=== PATIENT | male | born 1960 | race Caucasian/White ===

== ENCOUNTER 2021-02-01 11:00 | Outpatient (RCR) | payer BC, SELFPAY ==
--- NOTE | 2020-12-12 08:33 | HP.PTEVAL ---
Patient's Visit Information CJ CARRASCO is a 60 year old M referred to Physical Therapy by ELLA SALEH with a diagnosis of R RTC repair. Date of Evaluation: 12/07/20 Physical Therapist: Gustabo Lucia DPT - Visit Plan Frequency: 2-3x /Week Duration: 4 Weeks Plan: Start with PROM with focus on end range of motion. Add in inferior GH glides along with movements. Progress AAROM activities then AROm as tolerated. - Subjective Pt. is here today for his initial evaluation with R RTC repair 09/27/20. Pt. was in a sling for 6 weeks, but is no longer in it. 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 Pt. reports having increased pain at times, randomly. He has been pretty compliant with his HEP and with not lifting. Pt. reports sleeping okay in reclining chair, not as well in bed. He reports being very careful with his arm, but admits to occasionally over doing it. He had been doing pendulums and AAROM of her R shoulder. He reports having intermittent aching in his shoulder, but not too bad. He is hopeful to get back to all recreational and work activities without limitations. - Pain R shoulder Pain Intensity (Out of 10): 2 Pain Intensity Range: 0, 6 - Objective POSTURE: PT. has slight anterior R shoulder, slight guarded posture of R shoulder. PALAPTION: Pt. has tenderness along R UT and R sub acormial space. Mild. NEURO: Pt. has normal DTR and normal sensation of BUEs. ROM: LUE: full ROM without issues. R shoulder: PROM: flexion 165deg mild increase NW, ABd 155deg increase NW, ER 90deg 50deg, IR at 90deg 30deg. AAROM: Flexion 150deg, abd 120deg. MMT: did not test this date. - Balance/Special Test Scores Quick DASH Score: 61.3625 - Goals Goal 1:: LTG: Pt. to be I with HEP. Goal Time Frame: 4-6 Weeks Goal 2:: STG: Pt. to sleep throughout the night without increase in symptoms. Goal Time Frame: 2-4 Weeks Goal 3:: STG: Pt. to have full PROM without increase in symptoms of R shoulder. Goal Time Frame: 2 Weeks Goal 4:: LTG: Pt. to have full AROM of R shoulder without increase in symptoms. Goal Time Frame: 2-4 Weeks Goal 5:: STG: Pt. to complete light daily activities with in precautions without increase in symptoms. Goal Time Frame: 2-4 Weeks - Rehabilitation Potential Physical Therapy Diagnosis: Pt. has signs and symptoms consistent with R RTC repair. Pt. is ~8 weeks out of surgery and is overall doing well. He is still in his protective phase allowing for PROM and AAROM progressing to AROM. No resistance as of now. Pt. requires skilled PT to work on ROM progressing towards end range. Eventually progressing strengthening once approved to do so. Rehabilitation Potential: Excellent - Anticipated Interventions Patient/Client Instruction: Educate patient on: Condition, Plan of Care, Risk Factors, Benefits of Fitness Program For the Purpose of:: To improve decision making, To facilitate caregiver knowledge, To improve self management, To prevent re-injury, To improve ability to perform tasks related to life management Therapeutic Exercise to Include: Strength training, Power training, Endurance training, Postural training, Flexibilty training For the Purpose of:: To decrease pain, To increase ROM, To improve nutrient delivery to tissue, To increase oxygenation perfusion, To improve muscle performance and motor function, To improve ability to perform ADL's, To decrease soft tissue restriction, To increase flexibility/ROM Manual Therapy Techniques to Include: Mobilization, Passive ROM, Soft tissue mobilization For the Purpose of:: To decrease pain, To decrease swelling/inflammation, To increase ROM, To improve nutrient delivery to tissue, To increase oxygenation perfusion, To improve muscle performance and motor function Thank you for the opportunity to evaluate your patient. For Medicare and Medicare HMO plans, please review the plan of care and approve it. It will need to be FAXED BACK to us at [phone] for Medicare purposes. For Medicare only, by signing this I certify the plan of care. Please let me know if there are questions or concerns regarding this plan of care. Physician Signature: Date:
--- NOTE | 2021-01-04 12:52 | HP.PTREVAL ---
ELLA RICH, It has been my pleasure to treat CJ CARRASCO over the last 9 visits for R RTC repair 09/27/20. Please see the progress note below for an update on the physical therapy plan of care! Subjective: Pt. reports no pain currently. He does have some soreness the next day, but over all doing well. Objective/Function: Pt. is overall doing well, but is still tight with functional IR of his R shoulder. Pt. has good strength throughout his R shoulder 4/5 throughout, mild increase in symptoms with shoulder abd. He is compliant with his HEP without issues. Pt. to add in functional IR stretching with strap to HEP today. Pt. consents. He is pleased with his progress. I would like him to continue in PT with working on functional IR motion and strengthening of both RTC and deltoid. Plan Plan: Focus on improving functional IR AROM and strengthening of deltoid and RTC. 10# limit for the next few months. Balance/Gait/Functional tests - Balance/Special Test Scores Quick DASH Score: 27.2725 Goals Goal 1:: LTG: Pt. to be I with HEP. Goal Time Frame: 4-6 Weeks Goal Progress: Progressing Goal 2:: STG: Pt. to sleep throughout the night without increase in symptoms. Goal Time Frame: 2-4 Weeks Goal Progress: Goal Met Goal 3:: STG: Pt. to have full PROM without increase in symptoms of R shoulder. Goal Time Frame: 2 Weeks Goal Progress: Progressing Goal 4:: LTG: Pt. to have full AROM of R shoulder without increase in symptoms. Goal Time Frame: 2-4 Weeks Goal Progress: Progressing Goal 5:: STG: Pt. to complete light daily activities with in precautions without increase in symptoms. Goal Time Frame: 2-4 Weeks Goal Progress: Goal Met Goal 6:: LTG: PT. to have increased R shoulder strength increased to 5/5 throughout. Goal Time Frame: 4-6 Weeks Anticipated Interventions Patient/Client Instruction: Educate patient on: Condition, Plan of Care, Risk Factors, Benefits of Fitness Program For the Purpose of:: To improve decision making, To facilitate caregiver knowledge, To improve self management, To prevent re-injury, To improve ability to perform tasks related to life management Therapeutic Exercise to Include: Strength training, Power training, Endurance training, Postural training, Flexibilty training For the Purpose of:: To decrease pain, To increase ROM, To improve nutrient delivery to tissue, To increase oxygenation perfusion, To improve muscle performance and motor function, To improve ability to perform ADL's, To decrease soft tissue restriction, To increase flexibility/ROM Manual Therapy Techniques to Include: Mobilization, Passive ROM, Soft tissue mobilization For the Purpose of:: To decrease pain, To decrease swelling/inflammation, To increase ROM, To improve nutrient delivery to tissue, To increase oxygenation perfusion, To improve muscle performance and motor function Please do not hesitate to contact me at [phone] by phone or if you have questions or concerns regarding this new plan of care! Sincerely, CHANTELLE PandaT
--- NOTE | 2021-02-01 13:11 | HP.PTDCSUM ---
It has been my pleasure to treat CJ CARRASCO referred by ELLA RICH, with the diagnosis of R RTC repair 09/27/20 for a total of 17 visit(s). Discharge Date: 02/01/21 Please see the following information for a summary of their discharge status. Subjective: Pt. repots being 95% better overall. Pt. reports being back to work without issues. He has minimal soreness and is building up in resistances with strengthening. He does have some soreness with lying on R side, but other than that he is doing well. R shoulder Pain Intensity (Out of 10): 0 % Improvement: 95 Objective/Function: Pt. has good ROM throughout, he does have some tightness with IR motion, Active functional IR to L3. Pt. reports no pain with PROM into functional IR (achieved L1). Pt. had good strength throughout RUE 5-/5 throughout without increase in symptoms. Pt. denies N/T in either UE. Pt. has no pain with palpation throughout RUE. I talked to him about avoiding heavy weights with overhead lifting. Pt. consents to independent HEP at this point in time. Goal 1:: LTG: Pt. to be I with HEP. Goal Progress: Goal Met Goal 2:: STG: Pt. to sleep throughout the night without increase in symptoms. Goal Progress: Goal Met Goal 3:: STG: Pt. to have full PROM without increase in symptoms of R shoulder. Goal Progress: Goal Met Goal 4:: LTG: Pt. to have full AROM of R shoulder without increase in symptoms. Goal Progress: Goal Met Goal 5:: STG: Pt. to complete light daily activities with in precautions without increase in symptoms. Goal Progress: Goal Met Goal 6:: LTG: PT. to have increased R shoulder strength increased to 5/5 throughout. Goal Progress: Progressing Plan: Focus on improving functional IR AROM and strengthening of deltoid and RTC. 10# limit for the next few months. Discharge Comments: Pt. is overall did very well with PT. He has close to full ROM and is progressing well with strengthening. He is independent with all programs at this point in time and with DC from PT today. If there are questions or concerns regarding this patient's physical therapy, please feel free to call me at [phone]. Thank you for the referral of this patient. Sincerely, Gustabo L Sipos, DPT Balance/Gait/Functional tests - Balance/Special Test Scores Quick DASH Score: 0
== END 2021-02-01 19:00 | disposition home or self-care (01) ==
LOC: PT 11:00
DX: M75.21 Bicipital tendinitis, right shoulder (principal); M75.101 Unspecified rotator cuff tear or rupture of right shoulder, not specified as traumatic
CPT/HCPCS: 97110; 97140; 97161; 97164